=== PATIENT | female | born 1990 | race Asian ===

== ENCOUNTER 2017-06-21 17:27 | Emergency (ER) | payer SELFPAY ==
[~2017-06-21] VITALS: Ht 165.1 cm; Wt 82.0 kg
[~2017-06-21 17:27] MED LIST: ISONIAZID PO; [UNRECOGNIZED DRUG - CODE] PO
[2017-06-21 20:55] VITALS: BP 120/76
== END 2017-06-21 20:55 | disposition home or self-care (01) ==
LOC: ER 19:00
DX: Z11.1 Encounter for screening for respiratory tuberculosis (principal); R09.81 Nasal congestion
CPT/HCPCS: 71045; 81025; 99283

== ENCOUNTER 2017-06-29 20:51 | Emergency (ER) | payer MEDICAID ==
[~2017-06-29] VITALS: Ht 165.1 cm; Wt 81.0 kg
[2017-06-29] MEDS ORDERED: ONDANSETRON 4MG ODT PO STA (21:37)
[2017-06-29 22:25] LABS: KETONES URINE NEGATIVE (NEGATIVE); LEUKOCYTE ESTERASE URINE NEGATIVE (NEGATIVE); NITRITE URINE NEGATIVE (NEGATIVE); OCCULT BLOOD URINE TRACE (NEGATIVE); PROTEIN URINE 3+ (NEGATIVE); UROBILINOGEN URINE 0.2 E.U./dL (0.2-1.0)
[2017-06-29 22:29] LABS: CLARITY URINE HAZY (CLEAR); COLOR URINE YELLOW (YELLOW)
[2017-06-29 22:56] LABS: CHLORIDE 104 mEq/L (98-107)
[2017-06-29 22:57] LABS: INR 1.1; PROTHROMBIN TIME 11.1 sec (9.4-11.6)
[2017-06-29 23:02] LABS: BASOPHILS % 0.3 % (0.0-2.0); EOSINOPHILS % 1.7 % (0.0-5.0); HEMATOCRIT. 41.4 % (36.0-48.0); HEMOGLOBIN. 13.7 g/dL (12.0-16.0); LYMPHOCYTES % 29.6 % (20.0-50.0); MEAN CORPUSCULAR HEMOGLOBIN 29.1 pg (28.0-32.0); MEAN CORPUSCULAR VOLUME 88.1 fL (81.0-99.0); MEAN PLATELET VOLUME 8.9 fl (7.4-10.4); MONOCYTES % 5.5 % (2.0-8.0); NEUTROPHILS % 62.9 % (40.0-76.0); PLATELET 330 x1000/uL (130-400); RED BLOOD CELL COUNT 4.71 mill/uL (4.2-5.4); RED CELL DISTRIBUTION WIDTH 12.7 % (11.6-14.6)
[2017-06-29 23:04] LABS: CARBON DIOXIDE 28 mEq/L (21-32)
[2017-06-29 23:34] VITALS: BP 137/87
== END 2017-06-29 23:39 | disposition home or self-care (01) ==
LOC: ER 21:38
DX: R04.0 Epistaxis (principal); N39.0 Urinary tract infection, site not specified; R11.2 Nausea with vomiting, unspecified; R51 Headache
CPT/HCPCS: 36415; 80053; 81001; 81025; 83690; 85025; 85610; 99284; Q0162

== ENCOUNTER 2017-07-09 13:43 | Emergency (ER) | payer MEDICAID ==
[~2017-07-09] VITALS: Ht 165.1 cm; Wt 76.0 kg
[2017-07-09 14:41] VITALS: BP 147/96
== END 2017-07-09 17:35 | disposition home or self-care (01) ==
LOC: ER 14:22
DX: Z76.0 Encounter for issue of repeat prescription (principal); A15.9 Respiratory tuberculosis unspecified; Z79.899 Other long term (current) drug therapy
CPT/HCPCS: 99283